=== PATIENT | male | born 1965 | race American Indian/Alaskan Native ===

== ENCOUNTER 2016-08-08 10:16 | Outpatient (CLI) | payer OTHER ==
--- NOTE | 2016-08-08 10:54 | XRay Report ---
LUMBAR SPINE RADIOGRAPHS: INDICATION: Chronic back pain. COMPARISON: Correlated to 11/06/2015 lumbar spine MRI from [facility]. FINDINGS: AP and lateral lumbar spine radiographs demonstrate preserved vertebral body stature, alignment and disc heights. Nonobstructive bowel gas pattern. Normal bilateral SI joints. Clear visualized lung bases. Osteopenia possible. CONCLUSION: No acute lumbar radiographic abnormality. Thank you for the opportunity to participate in this patient's care.
== END 2016-08-08 10:17 | disposition home or self-care (01) ==
LOC: XRAY 10:16
PROVIDERS: ATTEND Internal Medicine
DX: Z02.71 Encounter for disability determination (principal); S39.92XA Unspecified injury of lower back, initial encounter; X58.XXXA Exposure to other specified factors, initial encounter; Y93.89 Activity, other specified; Y92.89 Other specified places as the place of occurrence of the external cause; Y99.8 Other external cause status
CPT/HCPCS: 72100

== ENCOUNTER 2016-08-16 12:24 | Emergency (ER) | payer MEDICAID, OTHER ==
[2016-08-16 13:06] VITALS: BP 141/90
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
== END 2016-08-16 17:19 | disposition home or self-care (01) ==
LOC: ED 12:24
DX: K02.9 Dental caries, unspecified (principal); M54.5 Low back pain; K08.89 Other specified disorders of teeth and supporting structures; J45.909 Unspecified asthma, uncomplicated
CPT/HCPCS: 99282

== ENCOUNTER 2017-10-15 09:22 | Emergency (ER) | payer MEDICAID ==
[2017-10-15 10:35] VITALS: BP 161/95
[2017-10-15] MEDS ORDERED: BACTRIM DS PO ONE (14:51)
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
== END 2017-10-15 15:22 | disposition home or self-care (01) ==
LOC: ED 09:22
DX: L02.01 Cutaneous abscess of face (principal); J45.909 Unspecified asthma, uncomplicated; F17.200 Nicotine dependence, unspecified, uncomplicated; F12.90 Cannabis use, unspecified, uncomplicated; Z88.8 Allergy status to other drugs, medicaments and biological substances
CPT/HCPCS: 87116; 99282

== ENCOUNTER 2018-06-09 10:44 | Emergency (ER) | payer MEDICAID ==
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
== END 2018-06-09 11:51 | disposition home or self-care (01) ==
LOC: ED 10:44
CPT/HCPCS: 99282

== ENCOUNTER 2019-09-23 09:07 | Emergency (ER) | payer MEDICAID ==
[2019-09-23 09:14] VITALS: BP 138/91
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
--- NOTE | 2019-09-23 10:02 | XRay Report ---
XR hand 3+V RT INDICATION / CLINICAL INFORMATION: Right hand pain and swelling. COMPARISON: None available. FINDINGS: BONES/JOINT(S): There is a mildly displaced fracture of the dorsal base of the distal phalanx in the fifth finger. There also may be a nondisplaced fracture of the dorsal base of the distal phalanx in t he fourth finger on the lateral view; correlation with point tenderness is recommended. SOFT TISSUES: No significant abnormality. ADDITIONAL FINDINGS: None. Signer Name: Waldemar Murillo MD Signed: 09/23/2019 9:58 AM Workstation Name: [id number]
== END 2019-09-23 10:37 | disposition home or self-care (01) ==
LOC: ED 09:07
DX: S60.221A Contusion of right hand, initial encounter (principal); J45.909 Unspecified asthma, uncomplicated; F17.200 Nicotine dependence, unspecified, uncomplicated; F12.90 Cannabis use, unspecified, uncomplicated; Z98.890 Other specified postprocedural states; Z88.8 Allergy status to other drugs, medicaments and biological substances; Z79.899 Other long term (current) drug therapy; X58.XXXA Exposure to other specified factors, initial encounter; Y93.89 Activity, other specified; Y92.89 Other specified places as the place of occurrence of the external cause; Y99.8 Other external cause status
CPT/HCPCS: 99283